=== PATIENT | male | born 1960 | race Caucasian/White ===

== ENCOUNTER 2022-06-15 16:20 | Emergency (ER) | payer BC, MEDICAID ==
[~2022-06-15] VITALS: Ht 182.9 cm; Wt 90.0 kg
[2022-06-15 16:22] VITALS: BP 96/62
[2022-06-15] MEDS ORDERED: MAGNESIUM/ALUMINUM HYDROXIDE/SIMETHICONE 30ML UDC PO STA (16:26)
[2022-06-15] MEDS ORDERED: ONDANSETRON 4MG ODT PO STA (16:26)
[2022-06-15 17:05] LABS: CHLORIDE 104 mEq/L (98-107)
[2022-06-15 17:08] LABS: BASOPHILS % 0.1 % (0.0-2.0); EOSINOPHILS % 1.4 % (0.0-5.0); HEMATOCRIT. 30.8 % (42.0-52.0); HEMOGLOBIN. 9.6 g/dL (14.0-18.0); LYMPHOCYTES % 28.5 % (20.0-50.0); MEAN CORPUSCULAR HEMOGLOBIN 22.9 pg (28.0-32.0); MEAN CORPUSCULAR VOLUME 73.5 fL (80.0-94.0); MONOCYTES % 8.5 % (2.0-8.0); NEUTROPHILS % 61.5 % (40.0-76.0); PLATELET 313 x1000/uL (130-400); RED BLOOD CELL COUNT 4.18 mill/uL (4.7-6.1); RED CELL DISTRIBUTION WIDTH 17.8 % (11.6-14.6)
[2022-06-15] MEDS ORDERED: ONDA4TAB50 MT (18:00)
== END 2022-06-15 23:50 | disposition home or self-care (01) ==
LOC: ER 16:20
DX: R11.2 Nausea with vomiting, unspecified (principal); D64.9 Anemia, unspecified; Z00.00 Encounter for general adult medical examination without abnormal findings; I10 Essential (primary) hypertension; F17.200 Nicotine dependence, unspecified, uncomplicated
CPT/HCPCS: 36415; 80053; 83690; 85025; 99283; Q0162